=== PATIENT | female | born 1955 | race Caucasian/White ===

== ENCOUNTER 2016-12-30 14:03 | Emergency (ER) | payer BC ==
[~2016-12-30] VITALS: Ht 162.6 cm; Wt 74.5 kg
[~2016-12-30 14:03] MED LIST: CALCIUM600 M2 PO; EXFORGE HCT 5 M1 TA1 PO; EXFORGE HCT 5 M1 TAB PO; FISH OIL CONC1000 MG PO; K-DUR 2020 MEQ PO; VITAMIN D 400400 IU PO
[2016-12-30 14:04] VITALS: TEMP 97.4
[2016-12-30] MEDS ORDERED: COREG 6.256.25 MG/TA PO (14:18)
[2016-12-30] MEDS ORDERED: SYNTHROID0.05 MG/TA PO (14:18)
[2016-12-30 17:10] VITALS: BP 137/90; PULSE 56
== END 2016-12-30 17:10 | disposition home or self-care (01) ==
LOC: COL.ER 14:03
DX: S20.212A Contusion of left front wall of thorax, initial encounter (principal); S20.211A Contusion of right front wall of thorax, initial encounter; S16.1XXA Strain of muscle, fascia and tendon at neck level, initial encounter; S50.11XA Contusion of right forearm, initial encounter; S40.021A Contusion of right upper arm, initial encounter; V43.52XA Car driver injured in collision with other type car in traffic accident, initial encounter; Y92.410 Unspecified street and highway as the place of occurrence of the external cause

== ENCOUNTER → 2019-11-11 | Outpatient (CLI) | payer BC, MEDICARE ==
[~2019-11-11] MED LIST changes: +COREG 6.256.25 MG/TA PO; +SYNTHROID0.05 MG/TA PO
== END ==
LOC: COL.RAD 11-10 11:00
DX: Q25.46 Tortuous aortic arch (principal); I51.7 Cardiomegaly; R91.1 Solitary pulmonary nodule
CPT/HCPCS: Q9967

== ENCOUNTER 2022-12-10 15:00 | Outpatient (RCR) | payer SELFPAY | END 2022-12-19 | disposition home or self-care (01) | LOC: MKS.ESL.PT | DX: Z47.1 Aftercare following joint replacement surgery (principal); M25.562 Pain in left knee ==